=== PATIENT | male | born 1960 | race Caucasian/White ===

== ENCOUNTER 2021-10-27 09:46 | Emergency (ER) | payer SELFPAY ==
[~2021-10-27] VITALS: Ht 172.7 cm; Wt 81.6 kg
--- NOTE | 2021-10-27 09:54 | NUR ---
Patient ambulatory, alert and orientedx4 complaints of left rib pain 01/08. Denies nausea,vomiting, abdominal pain. Not in distress.
--- NOTE | 2021-10-27 10:00 | NUR ---
MD at bedside, medical screening exam in process.
[2021-10-27 10:48] LABS: HEMATOCRIT 42.9 % (36.7-47.1); MEAN CORPUSCULAR HEMOGLOBIN 28.3 uug (23.8-33.4); MEAN CORPUSCULAR VOLUME 83.1 fL (73.0-96.2); PLATELET COUNT (AUTO) 247 K/uL (152-348)
--- NOTE | 2021-10-27 10:55 | NUR ---
UA sent to lab.
[2021-10-27 10:56] LABS: ETHANOL < 3 MG/DL (0-0)
[2021-10-27 11:04] LABS: ACETAMINOPHEN < 2.0 ug/mL (10-30); ALANINE AMINOTRANSFERASE 36 U/L (16-63); ALKALINE PHOSPHATASE 60 U/L (50-136); ASPARTATE AMINOTRANSFERASE 43 U/L (15-37); BILIRUBIN,DIRECT 0.1 mg/dL (0.0-0.2); BILIRUBIN,TOTAL 0.5 mg/dL (0.2-1.0); CARBON DIOXIDE 24 mmol/L (21-32); CHLORIDE 106 mmol/L (98-107); CREATININE 0.8 mg/dL (0.6-1.3); GLUCOSE 110 mg/dL (74-106); POTASSIUM 3.9 mmol/L (3.5-5.1); TOTAL PROTEIN, SERUM 7.6 g/dL (6.4-8.2); UREA NITROGEN, BLOOD 27 mg/dL (7-18)
[2021-10-27 11:09] LABS: THYROID STIMULATING HORMONE 2.221 mIU/mL (0.358-3.740)
[2021-10-27 11:33] LABS: *BILIRUBIN,URIN NEGATIVE (NEGATIVE); *BLOOD, URINE TRACE (NEGATIVE); *CLARITY,URINE CLEAR (CLEAR); *COLOR,URINE YELLOW (YELLOW); *KETONES,URINE 1+ (NEGATIVE); *UROBILINOGEN,URINE 0.2 E.U./dl (NORMAL); LEUKOCYTE ESTERASE ,URINE NEGATIVE (NEGATIVE); NITRITE, URINE NEGATIVE (NEGATIVE); UGLUCOSE NEGATIVE (NEGATIVE)
[2021-10-27 11:36] LABS: *AMPHETAMINE, URINE POSITIVE (NEGATIVE); *CANNABINOID, URINE NEGATIVE (NEGATIVE); *COCCAINE, URINE NEGATIVE (NEGATIVE)
[2021-10-27 11:37] LABS: *OPIATE, URINE NEGATIVE (NEGATIVE); *PHENCYCLIDINE SCREEN,URINE NEGATIVE (NEGATIVE)
--- NOTE | 2021-10-27 12:12 | NUR ---
Called vicky [place], advised to call police to give a report.
--- NOTE | 2021-10-27 12:13 | NUR ---
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
--- NOTE | 2021-10-27 12:54 | NUR ---
[employer] at bedside, further assessment of the incident in process.
[2021-10-27 14:38] VITALS: BP 125/80
--- NOTE | 2021-10-27 14:38 | NUR ---
Patient discharged to home in stable condition. Written and verbal after care instructions given. Patient verbalizes understanding of instructions. Stressed follow up or return to ER for worsening s/s.
[2021-10-27 15:43] LABS: BACTERIA,URINE NONE SEEN /HPF (NONE SEEN); RBC,URINE 0-3 /HPF (0-3); SQUAMOUS EPITHELIAL CELL,UR NONE SEEN /HPF (NONE SEEN); URINE AMORPHOUS URATE MANY /HPF; WBC,URINE 0-3 /HPF (0-3)
== END 2021-10-27 14:38 | disposition home or self-care (01) ==
LOC: ER 09:46
DX: S20.211A Contusion of right front wall of thorax, initial encounter (principal); Y09 Assault by unspecified means; Y92.89 Other specified places as the place of occurrence of the external cause; F20.9 Schizophrenia, unspecified
CPT/HCPCS: 36415; 70450; 71045; 72125; 84443; 84484; 85025; 85730; 93005; A4663; G0480